=== PATIENT | female | born 1995 | race Asian ===

== ENCOUNTER 2022-12-18 04:20 | Inpatient (IN) ==
[2022-12-18] MEDS ORDERED: LIDOCAINE 1% LOCAL 20 ML VIAL INFIL PRN (04:37)
[2022-12-18] MEDS ORDERED: OXYTOCIN 30 UNITS/500 ML BAG IV PRN ×3 (04:37→22:18)
[2022-12-18] MEDS ORDERED: ePHEDrine sulfate 50 MG/ML AMP ONE (04:59)
[2022-12-18] MEDS ORDERED: fentaNYL citrate PF 100 MCG/2 ML VIAL ONE (04:59)
[2022-12-18] MEDS ORDERED: LIDOCAINE 2%/EPINEPHRINE 1:200,000 20 ML PF ONE (05:00)
[2022-12-18] MEDS ORDERED: SODIUM CHLORIDE 0.9% PF INJ 10 ML VIAL ONE (05:00)
[2022-12-18] MEDS ORDERED: BUPIVACAINE 0.25% PF 30 ML VIAL ONE (05:00)
[2022-12-18] MEDS ORDERED: fentaNYL 2MCG/ML ROPIVACAINE 1.25MG/ML 100 ML BAG EPI ONE (05:00)
[2022-12-18] MEDS: LACTATED RINGER'S 1,000 ML IV PRN ×4 (05:02→15:58)
--- NOTE | 2022-12-18 05:04 | History & Physical Report ---
Date of Service December 18, 2022 Assessment & Plan (1) Normal labor: Plan: IUP at term in labor labs done through [facility]. she had FTA-ABS done then RPR which are NR. I cannot find these results in our record but will check with our office when they open this morning. hx of ASD repair and postural hypotension will try to maintain adequate hydration during labor and delivery patient requesting epidural analgesia anticipate vaginal History of Present Illness Primary Care Provider: NO PCP Patient is a 27 yo female EDC12/29/22 who presents at 38 3/7 weeks with increasingly more frequent and painful contractions. she had been 1+ cms in the office on 12/17/22 and now she is 3-4 cms dilated and very painful. GBS- negative complicated by ASD repair at age 7. most recent echocardiogram was normal. she has a history of SVT but no recent episodes. echo was also normal she has been having growth scans done through [facility] as her 1hr glucola was 131 and she declined the 2hr GTT . most recent scan done on 12/05/22 shows EFW of 85%tile. she also has a history of postural hypotension but has been able to stay well hydrated and has remained asymptomatic through out the except for 2 minor episodes. Allergies Allergy/AdvReac Type Severity Reaction Status Date / Time azithromycin Allergy Intermediate hives, rash Verified 12/17/22 14:18 Home Medications Medication Instructions Recorded Confirmed Type vits no.126-ferrous fum 1 tab PO DAILY 06/10/22 12/17/22 History 28 mg iron-folic acid 800 mcg tablet (Classic ) + DHA 1 cap PO DAILY 12/02/22 12/17/22 History Patient History Medical History (Updated 12/18/22 @ 05:11 by Deepali Pereira MD, FACOG) ASD (atrial septal defect) s/p repair Cleft lip s/p repair Colon polyp GERD (gastroesophageal reflux disease) mild, occasional per pt, stable per pt Scoliosis dx 7 y/o per pt, denies surgical intervention, no imaging since that time SVT (supraventricular tachycardia) Ventricular septal defect s/p repair Surgical History H/O cleft lip repair History of colon surgery Patient unsure if laparoscopic colectomy or colonoscopy with polypectomy. Hx of ventricular septal defect repair S/P primum atrial septal defect repair Heart repair in 2002, [facility] in [place] she thinks? Dr. Stefan Ferguson. Family History Other Adopted Unknown family medical history Social History (System 12/02/22 @ 09:50 by Lashae Cruz) Smoking Status: Never smoker Second Hand Exposure: No; Do You Dip or Chew Tobacco: No; Hx Alcohol Use: No Hx Substance Use: No Preferred Language: Turkish Communication Ability: Effective Visual Impairment: No Limitations Hearing Ability: Normal Patient Services Assistant Required: No Beliefs That Will Affect Care: None marital status: Single marital status details: [facility] (27) [phone] Current Living Situation: Significant Other Current Living Situation Comment: lives with boyfriend, [facility] current occupational status: employed current occupation: scribe for [employer] Feels Safe at Home: Yes Childhood Exposure to Second-Hand Smoke: No Diet: regular caffeine: Yes (coffee 1 cup/day ) Dental Care, Regularly: Yes Physical Activity Frequency: 1-2 Times per Week Seatbelt Use: always Sunscreen Use: Yes Sexual Activity: has been sexually active within the last 12 months Gender Identity: Female Assistive Devices: Contacts Review of Systems All systems reviewed & are unremarkable except as noted in HPI & below Physical Exam Constitutional: WD/WN, vitals as above Psychiatric: A+Ox3, euthymic affect Genitourinary: OB Exam Abdomen: + vertex, + estimated weight (7-8 pounds) and + regular contractions (3-4 mins) Manual OB Exam: + cervical dilation 4 cm and + cervical effacement 90% (per RN exam) OB Exam Monitor Tracing: + external FHT monitor used, + external uterine monitor used, + category I and + normal FHT variability Coding Level of Care Code None Diagnoses Normal labor O80; Z37.9
[2022-12-18 05:07] LABS: Hematocrit (blood only) 35.1 % (37.0-47.0); Hemoglobin 12.2 g/dl (12.0-16.0); Mean Corpuscular Hemoglobin 30.4 pg (25.0-34.0); Mean Corpuscular Hgb Conc 34.8 g/dL (32.0-36.0); Mean Corpuscular Volume 87.5 fL (80.0-100.0); Mean Platelet Volume 10.3 fL (9.4-12.4); Platelet Count 252 K/uL (130-400); RDW Coefficient of Variation 12.6 % (11.5-14.5); RDW Standard Deviation 40.1 fL (36.4-46.3); Red Blood Count 4.01 M/uL (4.20-5.40); White Blood Count 17.55 K/ul (4.8-10.8)
--- NOTE | 2022-12-18 05:55 | Anesthesiology Consultation ---
Date of Service December 18, 2022 Assessment & Plan (1) Encounter for pre-operative examination: Chart Review Chart Review: Acceptable Risk for Labor Epidural History Height/Weight Height: 5 ft 2 in Weight: 73.754 kg Allergies Allergy/AdvReac Type Severity Reaction Status Date / Time azithromycin Allergy Intermediate hives, rash Verified 12/17/22 14:18 Medications Home Medications Medication Instructions Recorded Confirmed Last Taken vits no.126-ferrous fum 1 tab PO DAILY 06/10/22 12/17/22 12/16/22 19:00 28 mg iron-folic acid 800 mcg tablet (Classic ) + DHA 1 cap PO DAILY 12/02/22 12/17/22 12/16/22 19:00 Active Medications Generic Name Dose Route Start Last Admin Trade Name Freq PRN Reason Stop Dose Admin Lactated Ringer's 1,000 mls @ 125 mls/hr 12/18/22 04:37 12/18/22 05:16 Lr IV 12/20/22 04:36 999 mls/hr .Q8H PRN Infusion L&D Protocol Protocol Past Medical History Medical History ASD (atrial septal defect) s/p repair Cleft lip s/p repair Colon polyp GERD (gastroesophageal reflux disease) mild, occasional per pt, stable per pt Scoliosis dx 7 y/o per pt, denies surgical intervention, no imaging since that time SVT (supraventricular tachycardia) Ventricular septal defect s/p repair some 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 Hx of ventricular septal defect repair S/P primum atrial septal defect repair Heart repair in 2002, [facility] in [place] she thinks? Dr. Stefan Ferguson. Social History Smoking Status: Never smoker Do You Dip or Chew Tobacco: No Hx Alcohol Use: No Hx Substance Use: No Physical Exam Vital Signs Last Vital Signs Temp 36.5 C 12/18/22 04:51 Pulse 86 12/18/22 05:49 Resp 16 12/18/22 04:51 BP 125/66 12/18/22 05:31 Pulse Ox 98 12/18/22 05:49 Testing Laboratory Results 12/18/22 04:51
[2022-12-18] MEDS ORDERED: ONDANSETRON INJ 2 MG/ML 2 ML VIAL IV PRN (06:34)
[2022-12-18] MEDS ORDERED: fentaNYL citrate PF 100 MCG/2 ML VIAL EPI STA (06:34)
[2022-12-18] MEDS ORDERED: LIDOCAINE 2% MPF LOCAL 5 ML VIAL EPI PRN (06:34)
[2022-12-18] MEDS ORDERED: SODIUM CHLORIDE 0.9% PF INJ 10 ML VIAL EPI PRN (06:34)
[2022-12-18] MEDS ORDERED: LIDOCAINE 2%/EPINEPHRINE 1:200,000 20 ML PF EPI STA (06:34)
[2022-12-18] MEDS ORDERED: fentaNYL 2MCG/ML ROPIVACAINE 1.25MG/ML 100 ML BAG EPI PRN (06:34)
[2022-12-18] MEDS ORDERED: SODIUM CHLORIDE 0.9% PF INJ 10 ML VIAL EPI STA (06:34)
[2022-12-18] MEDS ORDERED: BUPIVACAINE 0.25% PF 30 ML VIAL EPI PRN (06:34)
[2022-12-18] MEDS ORDERED: ePHEDrine sulfate 50 MG/ML AMP IV PRN (06:34)
[2022-12-18] MEDS ORDERED: BUPIVACAINE 0.25% PF 30 ML VIAL EPI STA (06:34)
[2022-12-18] MEDS ORDERED: ROPIVACAINE 0.5% PF 5 MG/ML 20 ML VIAL EPI PRN (06:34)
[2022-12-18] MEDS ORDERED: NALOXONE HCL 0.4 MG/1 ML VIAL/CARP IV PRN (06:34)
[2022-12-18] MEDS ORDERED: NALOXONE HCL 1 MG in SODIUM CHLORIDE 0.9% 1000ML 1,000 ML IV PRN (06:34)
[2022-12-18] MEDS ORDERED: fentaNYL citrate PF 100 MCG/2 ML VIAL EPI PRN (06:34)
--- NOTE | 2022-12-18 10:47 | Labor Progress Brief Note ---
Date of Service December 18, 2022 Subjective pt comfortable with epidural. called to see her due to decel that with bolus and position change and o2 has resolved. Assessment & Plan (1) Normal labor: (2) Congenital heart disease: Plan pt aware i am taking over care. fhts now improved. will allow for inutero resuscitation and then plan to add pitocin to improve labor patter. ? if rom, will see with nurse and if not, rec arom. fhts now categ 1. Admission and Anticipated Discharge Date Admission Date: December 18, 2022 Physical Exam Constitutional: WD/WN, vitals as above Genitourinary: Manual OB Exam: + cervical dilation (6cm per nurse) OB Exam Monitor Tracing: + external FHT monitor used, + external uterine monitor used (irreg), + category I and + normal FHT variability Results & Data Vital Signs (Past 12 Hours) Vital Signs Temp Pulse Resp BP Pulse Ox 12/18/22 04:51 97.7 F 16 12/18/22 10:40 68 99 12/18/22 10:35 80 99 12/18/22 10:33 73 109/62 12/18/22 10:30 80 100 12/18/22 10:27 79 92 12/18/22 10:25 79 100 12/18/22 10:20 93 H 96 12/18/22 10:18 82 110/61 12/18/22 10:15 77 97 12/18/22 10:10 100 H 92 12/18/22 10:08 77 94 12/18/22 10:05 80 96 12/18/22 10:04 79 115/68 12/18/22 10:00 85 96 12/18/22 09:55 79 96 12/18/22 09:50 84 97 12/18/22 09:48 75 119/66 12/18/22 09:45 78 98 12/18/22 09:40 78 100 12/18/22 09:35 83 98 12/18/22 09:33 85 128/72 12/18/22 09:30 82 100 12/18/22 09:25 83 100 12/18/22 09:20 81 100 12/18/22 09:19 82 121/68 12/18/22 09:15 83 99 12/18/22 09:10 84 100 12/18/22 09:05 88 99 12/18/22 09:03 81 111/61 12/18/22 09:00 80 99 12/18/22 08:55 85 99 12/18/22 08:50 84 99 12/18/22 08:45 71 97 12/18/22 08:40 73 99 12/18/22 08:35 67 97 12/18/22 08:33 68 126/62 12/18/22 08:30 68 96 12/18/22 08:25 69 97 12/18/22 08:20 68 96 12/18/22 08:19 69 124/61 12/18/22 08:15 65 97 12/18/22 08:10 67 98 12/18/22 08:05 66 92 12/18/22 08:04 68 124/62 12/18/22 08:00 68 94 12/18/22 07:57 77 93 12/18/22 07:55 76 94 12/18/22 07:52 72 92 12/18/22 07:50 75 97 12/18/22 07:49 68 119/64 12/18/22 07:45 68 95 12/18/22 07:40 72 97 12/18/22 07:35 73 99 12/18/22 07:34 67 120/64 12/18/22 07:32 76 93 12/18/22 07:30 70 99 12/18/22 07:24 69 99 12/18/22 07:19 72 99 12/18/22 07:17 73 123/64 12/18/22 07:15 98.2 F 71 16 112/58 L 100 12/18/22 07:14 77 98 12/18/22 07:13 68 118/60 12/18/22 07:11 65 117/59 L 12/18/22 07:09 67 116/57 L 97 12/18/22 07:07 68 120/58 L 12/18/22 07:04 68 97 12/18/22 07:05 64 115/57 L 12/18/22 07:03 65 121/65 12/18/22 07:01 78 117/62 12/18/22 06:59 97 12/18/22 06:59 68 12/18/22 06:59 67 120/59 L 12/18/22 06:57 73 118/61 12/18/22 06:54 74 96 08/09/23 06:55 69 118/61 12/18/22 06:53 68 118/58 L 12/18/22 06:51 74 109/60 12/18/22 06:49 83 120/69 100 12/18/22 06:47 85 117/66 12/18/22 06:45 78 115/67 12/18/22 06:44 74 99 12/18/22 06:43 79 109/64 12/18/22 06:41 72 106/60 12/18/22 06:39 75 114/57 L 97 12/18/22 06:37 77 114/61 12/18/22 06:35 75 112/62 12/18/22 06:34 72 97 12/18/22 06:33 76 116/59 L 12/18/22 06:31 69 115/56 L 12/18/22 06:29 98 12/18/22 06:29 76 12/18/22 06:29 72 111/57 L 12/18/22 06:26 75 119/59 L 12/18/22 06:24 78 98 12/18/22 06:23 85 136/60 12/18/22 06:19 76 98 12/18/22 06:14 84 99 12/18/22 06:09 90 100 12/18/22 06:04 87 99 12/18/22 06:03 85 92 12/18/22 05:59 78 99 12/18/22 05:54 83 100 12/18/22 05:49 86 98 12/18/22 05:31 86 125/66 Coding Level of Care Code None Diagnoses Normal labor O80; Z37.9 Congenital heart disease Q24.9
--- NOTE | 2022-12-18 11:57 | Labor Progress Brief Note ---
Date of Service December 18, 2022 Subjective called to see pt due to decel. by my arrival fhts normal baseline and variability, pt on side, o2 applied and pitocin off. apparently was just changed to pit at 5 Assessment & Plan (1) Normal labor: Plan fhts improved with position change. small cx change. will give time for in utero resuscitation and then see how ctx pattern looks and decide to add pitocin from there. mother and partner in room. asked ?s and answered to best of my ability. expressed to pt and family that i see nothing about baby to change our course for goal of safe vaginal delivery but unclear to me that if she cx does not change with her labor pattern if baby will tolerate pitocin. Feel we can watch things for now and see, always possible need for c/s but I don't think indicated now--suspect intermittent cord compression, they verbalize understanding. Admission and Anticipated Discharge Date Admission Date: December 18, 2022 Physical Exam Constitutional: WD/WN, vitals as above Genitourinary: Manual OB Exam: + cervical dilation 7 cm, + cervical effacement 90% and + station (no palpable membrane) 0 OB Exam Monitor Tracing: + external FHT monitor used, + external uterine monitor used (irregular), + category I and + normal FHT variability Results & Data Vital Signs (Past 12 Hours) Vital Signs Temp Pulse Resp BP Pulse Ox 12/18/22 04:51 97.7 F 16 12/18/22 11:48 73 114/61 12/18/22 11:45 70 100 12/18/22 11:40 91 H 100 12/18/22 11:35 94 H 100 12/18/22 11:33 95 H 119/62 12/18/22 11:30 103 H 100 12/18/22 11:25 78 97 12/18/22 11:20 78 95 12/18/22 11:19 80 114/64 12/18/22 11:17 82 91 12/18/22 11:15 95 H 96 12/18/22 11:10 80 97 12/18/22 11:05 78 97 12/18/22 11:03 70 93/50 L 12/18/22 11:00 87 96 12/18/22 10:55 78 96 12/18/22 10:50 74 99 12/18/22 10:48 80 102/59 L 12/18/22 10:45 79 100 12/18/22 10:40 68 99 12/18/22 10:35 80 99 12/18/22 10:33 73 109/62 12/18/22 10:30 80 100 12/18/22 10:27 79 92 12/18/22 10:25 79 100 12/18/22 10:20 93 H 96 12/18/22 10:18 82 110/61 12/18/22 10:15 77 97 12/18/22 10:10 100 H 92 12/18/22 10:08 77 94 12/18/22 10:05 80 96 12/18/22 10:04 79 115/68 12/18/22 10:00 85 96 12/18/22 09:55 79 96 12/18/22 09:50 84 97 12/18/22 09:48 75 119/66 12/18/22 09:45 78 98 12/18/22 09:40 78 100 12/18/22 09:35 83 98 12/18/22 09:33 85 128/72 12/18/22 09:30 82 100 12/18/22 09:25 83 100 12/18/22 09:20 81 100 12/18/22 09:19 82 121/68 12/18/22 09:15 83 99 12/18/22 09:10 84 100 12/18/22 09:05 88 99 12/18/22 09:03 81 111/61 12/18/22 09:00 80 99 12/18/22 08:55 85 99 12/18/22 08:50 84 99 12/18/22 08:45 71 97 12/18/22 08:40 73 99 12/18/22 08:35 67 97 12/18/22 08:33 68 126/62 12/18/22 08:30 68 96 12/18/22 08:25 69 97 12/18/22 08:20 68 96 12/18/22 08:19 69 124/61 12/18/22 08:15 65 97 12/18/22 08:10 67 98 12/18/22 08:05 66 92 12/18/22 08:04 68 124/62 12/18/22 08:00 68 94 12/18/22 07:57 77 93 12/18/22 07:55 76 94 12/18/22 07:52 72 92 12/18/22 07:50 75 97 12/18/22 07:49 68 119/64 12/18/22 07:45 68 95 12/18/22 07:40 72 97 12/18/22 07:35 73 99 12/18/22 07:34 67 120/64 12/18/22 07:32 76 93 12/18/22 07:30 70 99 12/18/22 07:24 69 99 12/18/22 07:19 72 99 12/18/22 07:17 73 123/64 12/18/22 07:15 98.2 F 71 16 112/58 L 100 12/18/22 07:14 77 98 12/18/22 07:13 68 118/60 12/18/22 07:11 65 117/59 L 12/18/22 07:09 67 116/57 L 97 12/18/22 07:07 68 120/58 L 12/18/22 07:04 68 97 12/18/22 07:05 64 115/57 L 12/18/22 07:03 65 121/65 12/18/22 07:01 78 117/62 12/18/22 06:59 97 12/18/22 06:59 68 12/18/22 06:59 67 120/59 L 12/18/22 06:57 73 118/61 12/18/22 06:54 74 96 12/18/22 06:55 69 118/61 12/18/22 06:53 68 118/58 L 12/18/22 06:51 74 109/60 12/18/22 06:49 83 120/69 100 12/18/22 06:47 85 117/66 12/18/22 06:45 78 115/67 12/18/22 06:44 74 99 12/18/22 06:43 79 109/64 12/18/22 06:41 72 106/60 12/18/22 06:39 75 114/57 L 97 12/18/22 06:37 77 114/61 12/18/22 06:35 75 112/62 12/18/22 06:34 72 97 12/18/22 06:33 76 116/59 L 12/18/22 06:31 69 115/56 L 12/18/22 06:29 98 12/18/22 06:29 76 12/18/22 06:29 72 111/57 L 12/18/22 06:26 75 119/59 L 12/18/22 06:24 78 98 12/18/22 06:23 85 136/60 12/18/22 06:19 76 98 12/18/22 06:14 84 99 12/18/22 06:09 90 100 12/18/22 06:04 87 99 12/18/22 06:03 85 92 12/18/22 05:59 78 99 12/18/22 05:54 83 100 12/18/22 05:49 86 98 12/18/22 05:31 86 125/66 Coding Level of Care Code None Diagnoses Normal labor O80; Z37.9
--- NOTE | 2022-12-18 19:13 | Labor Progress Brief Note ---
Date of Service December 18, 2022 Subjective no pain issues with epidural Assessment & Plan (1) Normal labor: Plan good cx change. anticip 2nd stage soon Admission and Anticipated Discharge Date Admission Date: December 18, 2022 Physical Exam Constitutional: WD/WN, vitals as above Genitourinary: Manual OB Exam: + cervical dilation (left lip), + cervical effacement 100% and + station + 2 OB Exam Monitor Tracing: + external FHT monitor used, + external uterine monitor used (q2-3 pit at 3), + category I and + normal FHT variability Results & Data Vital Signs (Past 12 Hours) Vital Signs Temp Pulse Resp BP Pulse Ox 12/18/22 19:05 100 H 100 12/18/22 19:04 81 138/74 12/18/22 19:00 78 99 12/18/22 18:55 77 98 12/18/22 18:50 73 99 12/18/22 18:48 88 133/89 12/18/22 18:45 75 99 12/18/22 18:40 77 99 12/18/22 18:35 78 100 12/18/22 18:34 83 134/77 12/18/22 18:30 82 99 12/18/22 18:25 79 99 12/18/22 18:20 82 99 12/18/22 18:18 79 142/76 H 12/18/22 18:15 82 100 12/18/22 18:10 81 99 12/18/22 18:05 75 99 12/18/22 18:03 97 H 135/85 12/18/22 18:00 80 99 12/18/22 17:55 77 99 12/18/22 15:18 98 12/18/22 15:18 100 H 12/18/22 15:18 110/63 12/18/22 17:30 100 12/18/22 17:30 99 H 12/18/22 17:50 79 98 12/18/22 17:48 83 141/80 H 12/18/22 17:45 83 98 12/18/22 17:40 79 99 12/18/22 17:35 99 12/18/22 17:35 82 12/18/22 17:35 83 129/78 12/18/22 17:30 99.5 F 78 16 129/79 99 12/18/22 17:25 78 100 12/18/22 17:20 82 100 12/18/22 17:19 91 H 120/75 12/18/22 17:15 81 100 12/18/22 17:10 95 H 99 12/18/22 17:05 101 H 98 12/18/22 17:04 98 H 114/62 12/18/22 17:00 100 H 97 12/18/22 16:55 99 H 97 12/18/22 16:50 74 100 12/18/22 16:48 76 109/63 12/18/22 16:45 97 H 100 12/18/22 16:40 98 H 100 12/18/22 16:35 97 H 100 12/18/22 16:36 97 H 108/59 L 12/18/22 16:30 79 100 12/18/22 16:25 99 H 100 12/18/22 16:20 97 H 99 12/18/22 16:18 100 H 105/59 L 12/18/22 16:15 96 H 99 12/18/22 16:10 82 100 12/18/22 16:05 93 H 100 12/18/22 16:03 100 H 110/62 12/18/22 16:00 102 H 100 12/18/22 15:55 98 H 99 12/18/22 15:50 99 H 100 12/18/22 15:48 93 H 122/65 12/18/22 15:45 97 H 99 12/18/22 15:40 99 H 99 12/18/22 15:35 85 99 12/18/22 15:34 98 H 107/55 L 12/18/22 15:30 96 H 98 12/18/22 15:25 93 H 98 12/18/22 15:20 99 H 99 12/18/22 15:18 98.4 F 95 H 16 102/64 12/18/22 15:15 96 H 98 12/18/22 15:10 94 H 98 12/18/22 15:05 98 H 98 12/18/22 15:03 100 H 108/61 12/18/22 15:00 98 H 98 12/18/22 14:55 80 98 12/18/22 14:50 96 H 97 12/18/22 14:48 99 H 112/65 12/18/22 14:45 97 H 96 12/18/22 14:40 97 H 98 12/18/22 14:35 100 H 97 12/18/22 14:33 97 H 110/63 12/18/22 14:30 94 H 98 12/18/22 14:25 93 H 97 12/18/22 14:20 77 98 12/18/22 14:18 98 H 109/62 12/18/22 14:15 97 H 98 12/18/22 14:10 74 98 12/18/22 14:05 95 H 98 12/18/22 14:03 98 H 112/62 12/18/22 14:00 95 H 98 12/18/22 13:55 98 H 97 12/18/22 13:50 87 97 12/18/22 13:48 96 H 112/63 12/18/22 13:45 94 H 98 12/18/22 13:40 75 97 12/18/22 13:35 73 97 12/18/22 13:33 76 110/60 12/18/22 13:30 94 H 97 12/18/22 13:25 95 H 98 12/18/22 13:20 96 H 100 12/18/22 13:18 93 H 112/63 12/18/22 13:15 93 H 97 12/18/22 13:10 94 H 97 12/18/22 13:05 95 H 98 12/18/22 13:03 97 H 107/66 12/18/22 13:00 82 99 12/18/22 12:55 90 97 12/18/22 12:50 97 H 97 12/18/22 12:48 96 H 102/58 L 12/18/22 12:45 97 H 97 12/18/22 12:40 92 H 97 12/18/22 12:35 90 97 12/18/22 12:33 79 111/58 L 12/18/22 12:30 78 97 12/18/22 12:25 98 H 98 12/18/22 12:20 93 H 97 12/18/22 12:18 95 H 103/59 L 12/18/22 12:15 91 H 98 12/18/22 12:10 98 H 99 12/18/22 12:05 89 99 12/18/22 12:03 86 119/62 12/18/22 12:00 93 H 97 12/18/22 11:55 92 H 100 12/18/22 11:50 97 H 100 12/18/22 11:48 73 114/61 12/18/22 11:45 70 100 12/18/22 11:40 91 H 100 12/18/22 11:35 94 H 100 12/18/22 11:33 95 H 119/62 12/18/22 11:30 103 H 100 12/18/22 11:25 78 97 12/18/22 11:20 78 95 12/18/22 11:19 80 114/64 12/18/22 11:17 82 91 12/18/22 11:15 98.2 F 95 H 20 96 12/18/22 11:10 80 97 12/18/22 11:05 78 97 12/18/22 11:03 70 93/50 L 12/18/22 11:00 98.2 F 87 96 12/18/22 10:55 78 96 12/18/22 10:50 74 99 12/18/22 10:48 80 102/59 L 12/18/22 10:45 79 100 12/18/22 10:40 68 99 12/18/22 10:35 80 99 12/18/22 10:33 73 109/62 12/18/22 10:30 80 100 12/18/22 10:27 79 92 12/18/22 10:25 79 100 12/18/22 10:20 93 H 96 12/18/22 10:18 82 110/61 12/18/22 10:15 77 97 12/18/22 10:10 100 H 92 12/18/22 10:08 77 94 12/18/22 10:05 80 96 12/18/22 10:04 79 115/68 12/18/22 10:00 85 96 12/18/22 09:55 79 96 12/18/22 09:50 84 97 12/18/22 09:48 75 119/66 12/18/22 09:45 78 98 12/18/22 09:40 78 100 12/18/22 09:35 83 98 12/18/22 09:33 85 128/72 12/18/22 09:30 82 100 12/18/22 09:25 83 100 12/18/22 09:20 81 100 12/18/22 09:19 82 121/68 12/18/22 09:15 83 99 12/18/22 09:10 84 100 12/18/22 09:05 88 99 12/18/22 09:03 81 111/61 12/18/22 09:00 80 99 12/18/22 08:55 85 99 12/18/22 08:50 84 99 12/18/22 08:45 71 97 12/18/22 08:40 73 99 12/18/22 08:35 67 97 12/18/22 08:33 68 126/62 12/18/22 08:30 68 96 12/18/22 08:25 69 97 12/18/22 08:20 68 96 12/18/22 08:19 69 124/61 12/18/22 08:15 65 97 12/18/22 08:10 67 98 12/18/22 08:05 66 92 12/18/22 08:04 68 124/62 12/18/22 08:00 68 94 12/18/22 07:57 77 93 12/18/22 07:55 76 94 12/18/22 07:52 72 92 12/18/22 07:50 75 97 12/18/22 07:49 68 119/64 12/18/22 07:45 68 95 12/18/22 07:40 72 97 12/18/22 07:35 73 99 12/18/22 07:34 67 120/64 12/18/22 07:32 76 93 12/18/22 07:30 70 99 12/18/22 07:24 69 99 12/18/22 07:19 72 99 12/18/22 07:17 73 123/64 12/18/22 07:15 98.2 F 71 16 112/58 L 100 12/18/22 07:14 77 98 12/18/22 07:13 68 118/60 Coding Level of Care Code None Diagnoses Normal labor O80; Z37.9
--- NOTE | 2022-12-18 21:29 | Delivery Summary ---
Vaginal Delivery Summary Date of Service December 18, 2022 Vaginal Delivery Summary The patient dilated to complete and pushed to deliver a viable male Apgars 8 and 9 via over intact perineum. Mouth and nose bulb suctioned at perineum. Meconium stained fluid noted. Shoulders and body delivered with ease. was vigorous and crying at . Cord clamped at 30 seconds of life and infant to maternal abdomen where the cord was then doubly clamped and cut. Placenta delivered spontaneously and intact, three-vessel cord. Hemostasis achieved with dilute pitocin and uterine massage. Cervix and sulci intact. Small vaginal laceration reapproximated with 3-0 vicryl. EBL 300 cc. Mother and baby stable in recovery. [facility] Vaginal Delivery Charge Delivery Type Details:
[2022-12-18] MEDS ORDERED: ACETAMINOPHEN 325 MG TAB PO PRN (22:18)
[2022-12-18] MEDS ORDERED: BENZOCAINE 20% SPRY 85 APPLN/85 GM CAN EXT PRN (22:18)
[2022-12-18] MEDS ORDERED: OXYTOCIN 20 UNITS in LACTATED RINGER'S 1,000 ML IV SCH (22:18)
[2022-12-18] MEDS ORDERED: HYDROCORTISONE ACETATE 25 MG SUPP PR PRN (22:18)
[2022-12-18] MEDS ORDERED: DIPHTHERIA/TETANUS/PERTUSSIS Vaccine (Tdap, Age 7+yrs) 0.5mL SYR/VL IM ONE (22:18)
[2022-12-18] MEDS ORDERED: oxyCODONE/ACETAMINOPHEN 5mg/325mg TAB PO PRN (22:18)
[2022-12-19] MEDS: IBUPROFEN 600 MG TAB PO PRN ×3 (03:50→17:18)
--- NOTE | 2022-12-19 06:25 | Obstetrical Progress Note ---
Date of Service <Jim Hollis MD - Last Filed: 12/19/22 07:17> December 19, 2022 Assessment & Plan <Jim Hollis MD - Last Filed: 12/19/22 07:17> (1) (spontaneous vaginal delivery): Plan Vital Signs reviewed and WNL. (Tmax at 37.7 @ 19:08 12/18/22) Hemoglobin Reviewed. (date) 12.2 (12/19/22). Blood Type: O+, GBS-, Rubella Immune Pt is doing well clinically. Encourage Ambulation, Monitor and Control pain with Motrin PRN, Resume regular diet, Monitor Lochia Encourage Breast Feeding. <Collette Razo MD, FACOG - Last Filed: 12/19/22 07:41> (1) (spontaneous vaginal delivery): Subjective <Jim Hollis MD - Last Filed: 12/19/22 07:17> Ambulation: ambulating normally Voiding: no voiding problems (no BM since delivering) Passing Gas:: Yes Diet Tolerance:: regular diet Lochia:: Small Feeding Type:: breast feeding (with formula supplementation as needed) Current Pain Level(1-10): 5 27 yo F s/p Review of Systems All systems reviewed & are unremarkable except as noted in HPI & below Respiratory: no dyspnea Cardiovascular: no chest pain or no palpitations Gastrointestinal: + abdominal pain (Lower, suprapubic area where uterus lies/umbilicus and inferior); no nausea or no vomiting Musculoskeletal: no back pain or no myalgia Physical Exam <Jim Hollis MD - Last Filed: 12/19/22 07:17> Respiratory normal respiratory effort, lungs clear to auscultation Cardiovascular RRR, no murmur, no edema Musculoskeletal Extremities: extremities normal to inspection (no calf tenderness) Results & Data <Jim Hollis MD - Last Filed: 12/19/22 07:17> Vital Signs (Past 12 Hours) Vital Signs Temp Pulse Pulse Resp BP BP Pulse Ox 12/19/22 00:10 36.9 C 79 20 114/71 96 12/18/22 23:25 18 12/18/22 22:55 18 12/18/22 22:25 18 12/18/22 22:10 18 12/18/22 21:55 18 12/18/22 21:40 18 12/18/22 21:25 18 12/18/22 23:30 86 121/62 12/18/22 23:18 81 116/61 12/18/22 23:05 110 H 127/66 12/18/22 22:48 86 106/63 12/18/22 22:33 99 H 102/50 L 12/18/22 22:18 104 H 109/57 L 12/18/22 22:03 94 H 115/60 12/18/22 20:45 20 12/18/22 20:45 20 12/18/22 21:48 100 H 122/58 L 12/18/22 21:33 113 H 127/59 L 12/18/22 21:26 123 H 122/59 L 12/18/22 21:21 130 H 94 12/18/22 21:18 137 H 135/63 12/18/22 21:16 118 H 90 12/18/22 21:11 114 H 100 12/18/22 21:08 116 H 91 12/18/22 21:06 124 H 81 L 12/18/22 21:01 118 H 100 12/18/22 20:56 127 H 88 L 12/18/22 20:51 123 H 100 12/18/22 20:49 102 H 119/58 L 12/18/22 20:46 111 H 89 L 12/18/22 20:41 109 H 100 12/18/22 20:40 121 H 86 L 12/18/22 20:36 115 H 97 12/18/22 20:35 116 H 89 L 12/18/22 20:31 116 H 56 L 12/18/22 20:29 112 H 91 12/18/22 20:26 105 H 100 12/18/22 20:23 110 H 81 L 12/18/22 20:21 119 H 96 12/18/22 20:20 84 120/75 12/18/22 20:17 82 91 12/18/22 20:16 83 100 12/18/22 20:11 104 H 100 12/18/22 20:10 102 H 85 L 12/18/22 20:06 109 H 100 12/18/22 20:04 117 H 92 12/18/22 20:01 105 H 100 12/18/22 19:56 116 H 98 12/18/22 19:53 117 H 118/63 12/18/22 19:51 97 H 100 12/18/22 19:52 102 H 83 L 12/18/22 19:45 98 H 98 12/18/22 19:40 100 H 99 12/18/22 19:35 90 98 12/18/22 19:30 94 H 100 12/18/22 19:25 87 99 12/18/22 19:08 18 12/18/22 19:08 37.7 C H 18 12/18/22 19:20 82 99 12/18/22 19:15 82 99 12/18/22 19:10 82 100 12/18/22 19:05 100 H 100 12/18/22 19:04 81 138/74 12/18/22 19:00 78 99 12/18/22 18:55 77 98 12/18/22 18:50 73 99 12/18/22 18:48 88 133/89 12/18/22 18:45 75 99 12/18/22 18:40 77 99 12/18/22 18:35 78 100 12/18/22 18:34 83 134/77 12/18/22 18:30 82 99 12/18/22 18:25 79 99 O2 Del Method 12/19/22 00:10 Room Air 12/18/22 23:25 12/18/22 22:55 12/18/22 22:25 12/18/22 22:10 12/18/22 21:55 12/18/22 21:40 12/18/22 21:25 12/18/22 23:30 12/18/22 23:18 12/18/22 23:05 12/18/22 22:48 12/18/22 22:33 12/18/22 22:18 12/18/22 22:03 12/18/22 20:45 12/18/22 20:45 12/18/22 21:48 12/18/22 21:33 12/18/22 21:26 12/18/22 21:21 12/18/22 21:18 12/18/22 21:16 12/18/22 21:11 12/18/22 21:08 12/18/22 21:06 12/18/22 21:01 12/18/22 20:56 12/18/22 20:51 12/18/22 20:49 12/18/22 20:46 12/18/22 20:41 12/18/22 20:40 12/18/22 20:36 12/18/22 20:35 12/18/22 20:31 12/18/22 20:29 12/18/22 20:26 12/18/22 20:23 12/18/22 20:21 12/18/22 20:20 12/18/22 20:17 12/18/22 20:16 12/18/22 20:11 12/18/22 20:10 12/18/22 20:06 12/18/22 20:04 12/18/22 20:01 12/18/22 19:56 12/18/22 19:53 12/18/22 19:51 12/18/22 19:52 12/18/22 19:45 12/18/22 19:40 12/18/22 19:35 12/18/22 19:30 12/18/22 19:25 12/18/22 19:08 12/18/22 19:08 12/18/22 19:20 12/18/22 19:15 12/18/22 19:10 12/18/22 19:05 12/18/22 19:04 12/18/22 19:00 12/18/22 18:55 12/18/22 18:50 12/18/22 18:48 12/18/22 18:45 12/18/22 18:40 12/18/22 18:35 12/18/22 18:34 12/18/22 18:30 12/18/22 18:25 <Collette Razo MD, FACOG - Last Filed: 12/19/22 07:41> Co-Signing Physician Notes Resident Physician Supervision Note: I was present with Dr. Hollis during the history and exam. I discussed the case with the resident and agree with the findings and plan as documented in the note. Any exceptions or clarifications are listed here: stable, doing well. eating, voiding, ambulating, breast feeding. lochia decreased. abd soft ff 2 down nt, ext nt calves. ppd#1 s/p , routine care. breast/rh pos, ri. Documented By: Collette Razo MD, FACOG
[2022-12-19] MEDS: PRENATAL VITAMIN 1 TAB PO SCH (08:18)
[2022-12-19] MEDS: DOCUSATE SODIUM 100 MG CAP PO SCH ×2 (08:18→20:37)
--- NOTE | 2022-12-19 08:39 | Anesthesia Procedure Note ---
Date of Service December 19, 2022 Anesthesia Post Epidural Note Vital Signs Vital Signs: Temp Pulse Resp BP Pulse Ox O2 Del Method 36.9 C 79 20 114/71 96 Room Air 12/19/22 00:12/19/22 00:12/19/22 00:12/19/22 00:10 12/19/22 00:12/19/22 00:10 Notes Mental Status: alert / awake / arousable and participated in evaluation Patient Amnestic to Procedure: No Nausea / Vomiting: adequately controlled Pain: adequately controlled Airway Patency, RR, SpO2: stable & adequate BP & HR: stable & adequate Hydration State: stable & adequate Neuraxial Anesthesia: was administered and sensory block resolved Anesthetic Complications: no major complications apparent and Pt Satisfied with anesthetic care Epidural: Removed without complications and With tip intact
[2022-12-20] MEDS: IBUPROFEN 600 MG TAB PO PRN (00:33)
[2022-12-20] MEDS: PRENATAL VITAMIN 1 TAB PO SCH (08:27)
[2022-12-20] MEDS: DOCUSATE SODIUM 100 MG CAP PO SCH (08:27)
[2022-12-20] MEDS ORDERED: bisacodyL 10 MG SUPP PR PRN (22:18)
== END 2022-12-20 14:44 | disposition home or self-care (01) | DRG 807 ==
LOC: OPB 04:20 → 4S1 04:23 → 4E2 23:53

== ENCOUNTER 2024-05-10 14:08 | Inpatient (IN) ==
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
[2024-05-10] MEDS ORDERED: OXYTOCIN 30 UNITS/NSS 30 UNITS/500 ML BAG IV PRN (15:01)
[2024-05-10] MEDS ORDERED: LIDOCAINE 1% LOCAL 20 ML VIAL INFIL PRN (15:01)
[2024-05-10 15:56] LABS: Hematocrit (blood only) 38.8 % (37.0-47.0); Hemoglobin 13.1 g/dl (12.0-16.0); Mean Corpuscular Hemoglobin 29.6 pg (25.0-34.0); Mean Corpuscular Hgb Conc 33.8 g/dL (32.0-36.0); Mean Corpuscular Volume 87.8 fL (80.0-100.0); Mean Platelet Volume 9.4 fL (9.4-12.4); Platelet Count 327 K/uL (130-400); RDW Coefficient of Variation 12.4 % (11.5-14.5); RDW Standard Deviation 39.5 fL (36.4-46.3); Red Blood Count 4.42 M/uL (4.20-5.40); White Blood Count 14.67 K/ul (4.8-10.8)
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
[2024-05-10] MEDS: OXYTOCIN 30 UNITS/NSS 30 UNITS/500 ML BAG IV PRN (18:00)
[2024-05-10] MEDS: SODIUM CHLORIDE 0.9% 1,000 ML IV SCH (18:00)
[2024-05-10] MEDS ORDERED: SODIUM CHLORIDE 0.9% PF INJ 10 ML VIAL EPI PRN (20:17)
[2024-05-10] MEDS ORDERED: NALOXONE HCL 1 MG in SODIUM CHLORIDE 0.9% 1,000 ML IV PRN (20:17)
[2024-05-10] MEDS ORDERED: ePHEDrine sulfate 50 MG/ML AMP IV PRN (20:17)
[2024-05-10] MEDS ORDERED: ROPIVACAINE 0.5% PF 5 MG/ML 20 ML VIAL EPI PRN (20:17)
[2024-05-10] MEDS ORDERED: LIDOCAINE 2% MPF LOCAL 5 ML VIAL EPI PRN (20:17)
[2024-05-10] MEDS ORDERED: diphenhydrAMINE 50 MG/ML VIAL IV PRN (20:17)
[2024-05-10] MEDS ORDERED: BUPIVACAINE 0.25% PF 30 ML VIAL EPI PRN (20:17)
[2024-05-10] MEDS ORDERED: fentANYL 2 MCG/ML BUPIVacaine 0.125%-NSS 100ML BAG EPI PRN (20:17)
[2024-05-10] MEDS ORDERED: fentaNYL citrate PF 100 MCG/2 ML VIAL EPI PRN (20:17)
[2024-05-10] MEDS ORDERED: NALBUPHINE HCL INJ 10 MG/ML AMP IV PRN (20:17)
[2024-05-10] MEDS ORDERED: NALOXONE HCL 0.4 MG/1 ML VIAL/CARP IV PRN (20:17)
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
[2024-05-10] MEDS: SODIUM CHLORIDE 0.9% PF INJ 10 ML VIAL ONE (20:34)
[2024-05-10] MEDS: BUPIVACAINE 0.25% PF 30 ML VIAL ONE (20:34)
[2024-05-10] MEDS: LIDOCAINE 2%/EPINEPHRINE 1:200,000 20 ML PF ONE (20:34)
[2024-05-10] MEDS: fentaNYL citrate PF 100 MCG/2 ML VIAL ONE (20:34)
[2024-05-10] MEDS: fentANYL 2 MCG/ML BUPIVacaine 0.125%-NSS 100ML BAG ONE (20:35)
[2024-05-10] MEDS: BUPIVACAINE 0.25% PF 30 ML VIAL EPI STA (20:36)
[2024-05-10] MEDS: fentaNYL citrate PF 100 MCG/2 ML VIAL EPI STA (20:37)
[2024-05-10] MEDS: LIDOCAINE 2%/EPINEPHRINE 1:200,000 20 ML PF EPI STA (20:37)
[2024-05-10] MEDS: SODIUM CHLORIDE 0.9% PF INJ 10 ML VIAL EPI STA (20:37)
[2024-05-10] MEDS: ePHEDrine sulfate 50 MG/ML AMP ONE (20:47)
[2024-05-11] MEDS ORDERED: ACETAMINOPHEN 325 MG TAB PO PRN (03:10)
[2024-05-11] MEDS ORDERED: OXYTOCIN 30 UNITS/NSS 30 UNITS/500 ML BAG IV PRN (03:10)
[2024-05-11] MEDS ORDERED: oxyCODONE/ACETAMINOPHEN 5mg/325mg TAB PO PRN (03:10)
[2024-05-11] MEDS ORDERED: BENZOCAINE 20% SPRY 85 APPLN/85 GM CAN EXT PRN (03:10)
[2024-05-11] MEDS ORDERED: HYDROCORTISONE ACETATE 25 MG SUPP PR PRN (03:10)
--- NOTE | 2024-05-11 03:14 | Delivery Summary ---
Vaginal Delivery Summary Date of Service May 11, 2024 Vaginal Delivery Summary Patient is a 28-year-old 2 para 1-0-0-1 female who presented at 38-3/7 weeks with spontaneous rupture membranes for clear fluid. She required Pitocin augmentation of her labor per labor and delivery protocol. She received effective epidural analgesia. She progressed to full dilation and pushed effectively over intact perineum for delivery of a viable female . After the head was delivered the rest of the delivered with ease. She was vigorous and crying and moving all 4 limbs. She is placed on mother's abdomen for further attention and drying. After 1 minute, the cord was clamped and cut. After cord blood was obtained, the placenta was expressed intact with a three- vessel cord. bleeding was controlled with dilute Pitocin and fundal massage. Perineum was intact except for a superficial abrasion on the right labia minora which was not bleeding and therefore not repaired. Mother and infant were doing well after delivery. QBL is 157 mL [facility] Vaginal Delivery Charge Delivery Type Details: [facility]
[2024-05-11] MEDS: DIPHTHER/TETAN/PERTUS Vaccine (Tdap, Adol/Adult) 0.5mL IM ONE (03:30)
--- NOTE | 2024-05-11 06:27 | Obstetrical Progress Note ---
Date of Service May 11, 2024 Assessment & Plan (1) state: Plan Lilibeth is a 28yo day 0 s/p . Feeling well this AM, VSS. Continue care Encourage ambulation and Pain control as needed Hgb: 13.1 on 05/10/24, asymptomatic Plans to go home tomorrow 05/12/24 or the next day. Followup with Dr. Pereira in 6wks. Admission and Anticipated Discharge Date Admission Date: May 10, 2024 Supervising Physician Co-Signing Physician Notes Resident Physician Supervision Note: I interviewed and examined the patient. Discussed with Dr. Armstrong and agree with findings and plan as documented in the note. Any exceptions or clarifications are listed here: [None] Documented By: Deepali Pereira MD, FACOG Subjective iLlibeth is a 28yo day 0 s/p today around 3am. Feeling well this AM. Pain: denies significant pain Ambulation: yes Gas: not yet Voiding: urinating, no BM yet Lochia: steady Diet: tolerating Feeds: , supplementing as needed Denies headache, chest pain, SOB, n/v/d, LE pain/swelling, LE numbness/tingling. Review of Systems Review of Systems: Denies fever, body aches, chills, sweats, vision changes, significant vaginal bleeding/discharge. Physical Exam Physical Exam: General: A&Ox3, resting comfortably in bed, in no apparent distress, nontoxic in appearance Skin: warm, dry, intact HEENT: EOM intact, PERRL b/l Cardiovascular: RRR, +s1/s2, no murmurs/rubs/gallops Pulmonary: clear to auscultation b/l, no wheezes/rales/rhonchi GI/Abd: +BS, uterine fundus firm and mildly tender to palpation, at level of umbilicus Extremities: no significant swelling or erythema of b/l LE, nontender to palpation, negative Manisha's b/l; warm, no clubbing or cyanosis Neuro: no facial droop, speech intact, moves all extremities on command Results & Data Laboratory Results 05/10/24 05/10/24 05/10/24 Range/Units 22:53 19:28 15:40 WBC 14.67 H (4.8-10.8) K/ul RBC 4.42 (4.20-5.40) M/uL Hgb 13.1 (12.0-16.0) g/dl Hct 38.8 (37.0-47.0) % MCV 87.8 (80.0-100.0) fL MCH 29.6 (25.0-34.0) pg MCHC 33.8 (32.0-36.0) g/dL RDW Std Deviation 39.5 (36.4-46.3) fL RDW Coeff of Darrell 12.4 (11.5-14.5) % Plt Count 327 (130-400) K/uL MPV 9.4 (9.4-12.4) fL POC Glucose 93 84 (70-99) mg/dl Treponema pallidum Ab Negative (Negative) Resident Activity Tracking Resident Involvement: Resident Care Provided Care Provided: OB Delivery
--- NOTE | 2024-05-11 07:02 | Anesthesia Procedure Note ---
Date of Service May 11, 2024 Anesthesia Post Epidural Note Vital Signs Vital Signs: Temp Pulse Resp BP Pulse Ox O2 Del Method 36.7 C 97 H 18 107/72 99 Room Air 05/11/24 05:00 05/11/24 05:12 05/11/24 05:00 05/11/24 05:12 05/11/24 05:00 05/11/24 05:00 Notes Mental Status: alert / awake / arousable Nausea / Vomiting: adequately controlled Pain: adequately controlled Airway Patency, RR, SpO2: stable & adequate BP & HR: stable & adequate Hydration State: stable & adequate Neuraxial Anesthesia: was administered and sensory block is resolving Anesthetic Complications: no major complications apparent and Pt Satisfied with anesthetic care Epidural: Removed without complications and With tip intact
[2024-05-11] MEDS: PRENATAL VITAMIN 1 TAB PO SCH (08:28)
[2024-05-11] MEDS: DOCUSATE SODIUM 100 MG CAP PO SCH (08:28)
[2024-05-11] MEDS: IBUPROFEN 600 MG TAB PO PRN (20:16)
--- NOTE | 2024-05-12 06:59 | Obstetrical Progress Note ---
Date of Service May 12, 2024 Assessment & Plan (1) state: Plan Lilibeth is a 28yo day 1 s/p . Feeling well this AM, VSS. Continue care Encourage ambulation and Pain control as needed Hgb: 13.1 -> 11.8, asymptomatic Plans to go home today Followup with Dr. Pereira in 6wks. Admission and Anticipated Discharge Date Admission Date: May 10, 2024 Supervising Physician Co-Signing Physician Notes Resident Physician Supervision Note: I interviewed and examined the patient. Discussed with Dr. Armstrong and agree with findings and plan as documented in the note. Any exceptions or clarifications are listed here: Doing well. Plan d/c later today. Instructions given. Documented By: Chen Berger MD, FACOG Subjective Lilibeth is a 28yo day 1 s/p . Feeling well this AM. Pain: denies Ambulation: yes Gas: not yet Voiding: urinating, had BM Lochia: decreasing Diet: tolerating well Feeds: pumping and supplementing Denies headache, chest pain, SOB, n/v/d, LE pain/swelling, LE numbness/tingling. Review of Systems Review of Systems: Denies fever, body aches, chills, sweats, vision changes, significant vaginal bleeding/discharge. Physical Exam Physical Exam: General: A&Ox3, resting comfortably in bed, in no apparent distress, nontoxic in appearance Skin: warm, dry, intact HEENT: EOM intact, PERRL b/l Cardiovascular: RRR, +s1/s2, no murmurs/rubs/gallops Pulmonary: clear to auscultation b/l, no wheezes/rales/rhonchi GI/Abd: +BS, uterine fundus firm, 1 fingerwidth inferior to umbilicus, nontender to palpation Extremities: no significant swelling or erythema of b/l LE, nontender to palpation, negative Manisha's b/l; warm, no clubbing or cyanosis Neuro: no facial droop, speech intact, moves all extremities on command Results & Data Vital Signs (Past 12 Hours) Vital Signs Temp Pulse Resp BP Pulse Ox O2 Del Method 05/11/24 23:00 36.7 C 83 16 121/78 98 Room Air 05/11/24 20:00 36.8 C 82 20 116/73 97 Room Air Laboratory Results 05/12/24 Range/Units 07:06 WBC 9.31 (4.8-10.8) K/ul RBC 3.93 L (4.20-5.40) M/uL Hgb 11.8 L (12.0-16.0) g/dl Hct 35.1 L (37.0-47.0) % MCV 89.3 (80.0-100.0) fL MCH 30.0 (25.0-34.0) pg MCHC 33.6 (32.0-36.0) g/dL RDW Std Deviation 39.8 (36.4-46.3) fL RDW Coeff of Darrell 12.4 (11.5-14.5) % Plt Count 269 (130-400) K/uL MPV 9.5 (9.4-12.4) fL Resident Activity Tracking Resident Involvement: Resident Care Provided Care Provided: OB Delivery
[2024-05-12 07:41] LABS: Hematocrit (blood only) 35.1 % (37.0-47.0); Hemoglobin 11.8 g/dl (12.0-16.0); Mean Corpuscular Hgb Conc 33.6 g/dL (32.0-36.0); Mean Corpuscular Volume 89.3 fL (80.0-100.0); Mean Platelet Volume 9.5 fL (9.4-12.4); Platelet Count 269 K/uL (130-400); RDW Coefficient of Variation 12.4 % (11.5-14.5); RDW Standard Deviation 39.8 fL (36.4-46.3); Red Blood Count 3.93 M/uL (4.20-5.40); White Blood Count 9.31 K/ul (4.8-10.8)
[2024-05-12 13:50] VITALS: BP 108/71; PULSE 81; RESP 16; TEMP 98.4; O2SAT 97
[2024-05-12] MEDS ORDERED: bisacodyL 5 MG TABEC PO SCH (20:00)
[2024-05-13] MEDS ORDERED: bisacodyL 10 MG SUPP PR PRN (03:10)
== END 2024-05-12 18:51 | disposition home or self-care (01) | DRG 807 ==
LOC: MERGE 14:08 → OPB 14:08 → 4S1 14:10 → 4E2 05-11 06:01